=== PATIENT | male | born 1995 | race African-American/Black ===

== ENCOUNTER 2021-05-18 08:14 | Emergency (ER) | payer MEDICAID ==
[~2021-05-18] VITALS: Ht 172.7 cm; Wt 68.0 kg
[2021-05-18] MEDS ORDERED: ACETAMINOPHEN 325MG TABLET PO STA (09:48)
[2021-05-18 10:14] LABS: CLARITY URINE CLEAR (CLEAR); COLOR URINE DARK YELLOW (YELLOW); KETONES URINE 4+ (NEGATIVE); LEUKOCYTE ESTERASE URINE NEGATIVE (NEGATIVE); NITRITE URINE NEGATIVE (NEGATIVE); OCCULT BLOOD URINE NEGATIVE (NEGATIVE); PH URINE 5.5 (4.5-8.0); PROTEIN URINE TRACE (NEGATIVE); SPECIFIC GRAVITY URINE 1.033 (1.005-1.030)
[2021-05-18 10:25] LABS: BASOPHILS % 0.3 % (0.0-2.0); EOSINOPHILS % 0.3 % (0.0-5.0); HEMATOCRIT. 48.9 % (42.0-52.0); HEMOGLOBIN. 16.8 g/dL (14.0-18.0); LYMPHOCYTES % 18.2 % (20.0-50.0); MEAN CORPUSCULAR HEMOGLOBIN 33.2 pg (28.0-32.0); MEAN CORPUSCULAR VOLUME 96.5 fL (80.0-94.0); MEAN PLATELET VOLUME 7.8 fl (7.4-10.4); MONOCYTES % 10.5 % (2.0-8.0); NEUTROPHILS % 70.7 % (40.0-76.0); PLATELET 279 x1000/uL (130-400); RED BLOOD CELL COUNT 5.07 mill/uL (4.7-6.1)
[2021-05-18 10:31] LABS: CHLORIDE 104 mEq/L (98-107)
[2021-05-18 10:35] LABS: ETHANOL BLOOD < 10 mg/dL
[2021-05-18 10:39] LABS: *AMPHETAMINES SCREEN URINE PRESUMTIVE POSITIVE (NEGATIVE); *BARBITURATES SCREEN URINE NEGATIVE (NEGATIVE); *COCAINE SCREEN URINE NEGATIVE (NEGATIVE)
[2021-05-18 10:40] LABS: *BENZODIAZEPINES SCREEN URINE NEGATIVE (NEGATIVE)
[2021-05-18 10:41] LABS: CANNABINOID URINE SCREEN PRESUMTIVE POSITIVE (NEGATIVE); METHADONE URINE SCREEN NEGATIVE (NEGATIVE); OPIATES URINE SCREEN NEGATIVE (NEGATIVE); PHENCYCLIDINE URINE SCREEN NEGATIVE (NEGATIVE)
[2021-05-18] MEDS ORDERED: LORAZEPAM 1MG TABLET PO ONE (13:30)
[2021-05-18] MEDS ORDERED: OLANZAPINE 5MG TABLET ODT PO ONE (13:30)
[2021-05-18] MEDS ORDERED: LORAZEPAM 1MG TABLET PO NR (14:30)
[2021-05-18] MEDS ORDERED: OLANZAPINE 5MG TABLET ODT PO NR (14:30)
[2021-05-18] MEDS ORDERED: QUET200T MT (18:59)
[2021-05-18 19:26] VITALS: BP 115/79
== END 2021-05-18 19:32 | disposition home or self-care (01) ==
LOC: ER 08:14
DX: S02.2XXA Fracture of nasal bones, initial encounter for closed fracture (principal); S02.40CA Maxillary fracture, right side, initial encounter for closed fracture; S00.81XA Abrasion of other part of head, initial encounter; R45.851 Suicidal ideations; F20.9 Schizophrenia, unspecified; F15.10 Other stimulant abuse, uncomplicated; F12.10 Cannabis abuse, uncomplicated; Z88.0 Allergy status to penicillin; Y08.09XA Assault by strike by other specified type of sport equipment, initial encounter; Y93.89 Activity, other specified; Y92.488 Other paved roadways as the place of occurrence of the external cause
CPT/HCPCS: 36415; 70486; 80053; 80305; 80307; 80320; 80329; 81003; 85025; 99285; G0480

== ENCOUNTER 2021-06-13 03:41 | Emergency (ER) | payer MEDICAID ==
[~2021-06-13] VITALS: Ht 172.7 cm; Wt 77.0 kg
[~2021-06-13 03:41] MED LIST: QUET200T MT
[2021-06-13 03:47] VITALS: BP 158/98
== END 2021-06-13 04:47 | disposition left against medical advice (07) ==
LOC: ER 03:41
DX: Z53.21 Procedure and treatment not carried out due to patient leaving prior to being seen by health care provider (principal)

== ENCOUNTER 2021-06-13 04:57 | Emergency (ER) | payer MEDICAID ==
[~2021-06-13] VITALS: Ht 172.7 cm; Wt 84.0 kg
[2021-06-13] MEDS ORDERED: LORAZEPAM 1MG TABLET PO ONE (07:00)
[2021-06-13 07:01] LABS: BASOPHILS % 0.1 % (0.0-2.0); EOSINOPHILS % 1.6 % (0.0-5.0); HEMATOCRIT. 43.9 % (42.0-52.0); HEMOGLOBIN. 15.1 g/dL (14.0-18.0); LYMPHOCYTES % 18.4 % (20.0-50.0); MEAN CORPUSCULAR HEMOGLOBIN 32.7 pg (28.0-32.0); MEAN CORPUSCULAR VOLUME 94.9 fL (80.0-94.0); MEAN PLATELET VOLUME 7.5 fl (7.4-10.4); NEUTROPHILS % 65.9 % (40.0-76.0); PLATELET 330 x1000/uL (130-400); RED BLOOD CELL COUNT 4.62 mill/uL (4.7-6.1); RED CELL DISTRIBUTION WIDTH 13.1 % (11.6-14.6)
[2021-06-13 07:08] LABS: CHLORIDE 104 mEq/L (98-107)
[2021-06-13 07:12] LABS: ETHANOL BLOOD < 10 mg/dL
[2021-06-13 07:19] LABS: CLARITY URINE CLEAR (CLEAR); COLOR URINE YELLOW (YELLOW); KETONES URINE NEGATIVE (NEGATIVE); LEUKOCYTE ESTERASE URINE NEGATIVE (NEGATIVE); NITRITE URINE NEGATIVE (NEGATIVE); OCCULT BLOOD URINE NEGATIVE (NEGATIVE); PROTEIN URINE NEGATIVE (NEGATIVE); SPECIFIC GRAVITY URINE 1.005 (1.005-1.030); UROBILINOGEN URINE 0.2 E.U./dL (0.2-1.0)
[2021-06-13 07:47] LABS: *AMPHETAMINES SCREEN URINE PRESUMTIVE POSITIVE (NEGATIVE); *BARBITURATES SCREEN URINE NEGATIVE (NEGATIVE); *BENZODIAZEPINES SCREEN URINE NEGATIVE (NEGATIVE); *COCAINE SCREEN URINE NEGATIVE (NEGATIVE); METHADONE URINE SCREEN NEGATIVE (NEGATIVE)
[2021-06-13 07:48] LABS: CANNABINOID URINE SCREEN NEGATIVE (NEGATIVE); OPIATES URINE SCREEN NEGATIVE (NEGATIVE); PHENCYCLIDINE URINE SCREEN NEGATIVE (NEGATIVE)
[2021-06-13] MEDS ORDERED: HALOPERIDOL LACTATE 5MG/ML VIAL IM ONE (08:15)
[2021-06-13] MEDS ORDERED: LORAZEPAM 2MG/ML CPJ IM ONE (08:15)
[2021-06-13] MEDS ORDERED: ZIPRASIDONE MESYLATE 20MG/VIAL IM ONE (09:15)
[2021-06-13 09:57] VITALS: BP 110/62
== END 2021-06-13 10:04 | disposition home or self-care (01) ==
LOC: ER 04:57
DX: F24 Shared psychotic disorder (principal); F12.10 Cannabis abuse, uncomplicated; F15.10 Other stimulant abuse, uncomplicated; Z88.0 Allergy status to penicillin; Z86.59 Personal history of other mental and behavioral disorders
CPT/HCPCS: 36415; 80053; 80305; 80307; 80320; 80329; 81003; 85025; 96372; 99284; J1630; J2060; J3486; Z7610; G0480

== ENCOUNTER 2021-06-16 17:32 | Emergency (ER) | payer MEDICAID ==
[~2021-06-16] VITALS: Ht 180.3 cm; Wt 77.1 kg
[2021-06-16] MEDS ORDERED: QUETIAPINE FUMARATE 50MG TABLET PO SCH (18:15)
[2021-06-16] MEDS ORDERED: NICOTINE 21MG PATCH TD ONE (18:15)
[2021-06-16] MEDS ORDERED: LORAZEPAM 2MG/ML CPJ IV ONE (18:15)
[2021-06-16] MEDS ORDERED: SODIUM CHLORIDE 0.9% 1,000 ML IV ONE (18:15)
[2021-06-16 18:21] LABS: BASOPHILS % 0.3 % (0.0-2.0); EOSINOPHILS % 0.1 % (0.0-5.0); HEMOGLOBIN. 14.8 g/dL (14.0-18.0); LYMPHOCYTES % 15.3 % (20.0-50.0); MEAN CORPUSCULAR HEMOGLOBIN 32.5 pg (28.0-32.0); MEAN CORPUSCULAR VOLUME 94.5 fL (80.0-94.0); MEAN PLATELET VOLUME 7.3 fl (7.4-10.4); MONOCYTES % 6.1 % (2.0-8.0); NEUTROPHILS % 78.2 % (40.0-76.0); PLATELET 337 x1000/uL (130-400); RED BLOOD CELL COUNT 4.56 mill/uL (4.7-6.1)
[2021-06-16 18:28] LABS: CHLORIDE 104 mEq/L (98-107)
[2021-06-16 18:32] LABS: ETHANOL BLOOD < 10 mg/dL
[2021-06-16] MEDS ORDERED: LORAZEPAM 1MG TABLET PO NR (19:00)
[2021-06-16 20:10] LABS: CLARITY URINE CLEAR (CLEAR); COLOR URINE YELLOW (YELLOW); KETONES URINE NEGATIVE (NEGATIVE); LEUKOCYTE ESTERASE URINE NEGATIVE (NEGATIVE); NITRITE URINE NEGATIVE (NEGATIVE); OCCULT BLOOD URINE NEGATIVE (NEGATIVE); PH URINE 5.5 (4.5-8.0); PROTEIN URINE NEGATIVE (NEGATIVE); SPECIFIC GRAVITY URINE 1.012 (1.005-1.030); UROBILINOGEN URINE 0.2 E.U./dL (0.2-1.0)
[2021-06-16 20:25] LABS: METHADONE URINE SCREEN NEGATIVE (NEGATIVE); OPIATES URINE SCREEN NEGATIVE (NEGATIVE); PHENCYCLIDINE URINE SCREEN NEGATIVE (NEGATIVE)
[2021-06-16 20:27] LABS: *AMPHETAMINES SCREEN URINE PRESUMTIVE POSITIVE (NEGATIVE); *BARBITURATES SCREEN URINE NEGATIVE (NEGATIVE); *BENZODIAZEPINES SCREEN URINE NEGATIVE (NEGATIVE); *COCAINE SCREEN URINE NEGATIVE (NEGATIVE); CANNABINOID URINE SCREEN PRESUMTIVE POSITIVE (NEGATIVE)
[2021-06-16] MEDS ORDERED: DIPHENHYDRAMINE 50MG/ML VIAL IM STA (21:00)
[2021-06-16] MEDS ORDERED: LORAZEPAM 2MG/ML CPJ IM STA (21:00)
[2021-06-16] MEDS ORDERED: HALOPERIDOL LACTATE 5MG/ML VIAL IM STA (21:00)
[2021-06-16] MEDS ORDERED: LORAZEPAM 2MG/ML CPJ IM ONE (22:00)
[2021-06-16] MEDS ORDERED: HALOPERIDOL LACTATE 5MG/ML VIAL IM ONE (23:00)
[2021-06-17] MEDS ORDERED: ACETAMINOPHEN 325MG TABLET PO ONE (03:15)
[2021-06-17] MEDS ORDERED: QUET200T MT (07:08)
[2021-06-17 07:42] VITALS: BP 126/70
== END 2021-06-17 07:45 | disposition home or self-care (01) ==
LOC: ER 17:32
DX: T88.7XXA Unspecified adverse effect of drug or medicament, initial encounter (principal); R45.851 Suicidal ideations; T43.625A Adverse effect of amphetamines, initial encounter; Y92.9 Unspecified place or not applicable; Z78.1 Physical restraint status
CPT/HCPCS: 36415; 80053; 80305; 80320; 81003; 85025; 93005; 96372; 99285; J1200; J1630; J2060; J7030; Z7610; G0480

== ENCOUNTER 2021-08-09 00:19 | Emergency (ER) | payer MEDICAID ==
[~2021-08-09] VITALS: Ht 177.8 cm; Wt 73.0 kg
[2021-08-09 02:00] VITALS: BP 113/71
[2021-08-09] MEDS ORDERED: LORAZEPAM 1MG TABLET PO ONE (02:45)
[2021-08-09] MEDS ORDERED: QUET200T MT (03:09)
[2021-08-09] MEDS ORDERED: DOXY100C5 MT (03:09)
[2021-08-09] MEDS ORDERED: ACETAMINOPHEN 325MG TABLET PO ONE (03:15)
== END 2021-08-09 04:51 | disposition home or self-care (01) ==
LOC: ER 00:35
DX: S31.21XA Laceration without foreign body of penis, initial encounter (principal); R51.9 Headache, unspecified; F20.9 Schizophrenia, unspecified; F41.9 Anxiety disorder, unspecified; Y08.89XA Assault by other specified means, initial encounter; Y93.9 Activity, unspecified; Z88.0 Allergy status to penicillin
CPT/HCPCS: 99283

== ENCOUNTER 2021-08-09 16:29 | Emergency (ER) | payer MEDICAID ==
[~2021-08-09] VITALS: Ht 172.7 cm; Wt 75.0 kg
[~2021-08-09 16:29] MED LIST changes: +DOXY100C5 MT
[2021-08-09 21:26] LABS: BASOPHILS % 0.6 % (0.0-2.0); EOSINOPHILS % 1.9 % (0.0-5.0); HEMATOCRIT. 43.3 % (42.0-52.0); HEMOGLOBIN. 14.4 g/dL (14.0-18.0); LYMPHOCYTES % 42.6 % (20.0-50.0); MEAN CORPUSCULAR VOLUME 95.9 fL (80.0-94.0); MEAN PLATELET VOLUME 6.9 fl (7.4-10.4); MONOCYTES % 8.7 % (2.0-8.0); NEUTROPHILS % 46.2 % (40.0-76.0); PLATELET 233 x1000/uL (130-400); RED BLOOD CELL COUNT 4.51 mill/uL (4.7-6.1); RED CELL DISTRIBUTION WIDTH 14.2 % (11.6-14.6)
[2021-08-09 21:31] LABS: CHLORIDE 109 mEq/L (98-107)
[2021-08-09 21:34] LABS: ETHANOL BLOOD < 10 mg/dL
[2021-08-10 06:00] VITALS: BP 116/50
== END 2021-08-10 06:16 | disposition home or self-care (01) ==
LOC: ER 16:29
DX: R41.82 Altered mental status, unspecified (principal); F15.10 Other stimulant abuse, uncomplicated; F41.9 Anxiety disorder, unspecified; F20.9 Schizophrenia, unspecified; Z88.0 Allergy status to penicillin
CPT/HCPCS: 36415; 80053; 80320; 85025; 99285; G0480

== ENCOUNTER 2021-08-22 11:30 | Emergency (ER) | payer MEDICAID ==
[~2021-08-22] VITALS: Ht 182.9 cm; Wt 80.0 kg
[2021-08-22] MEDS ORDERED: DIPHENHYDRAMINE 50MG CAPSULE PO STA (12:16)
[2021-08-22] MEDS ORDERED: ACETAMINOPHEN 325MG TABLET PO STA (12:16)
[2021-08-22] MEDS ORDERED: LORAZEPAM 1MG TABLET PO ONE (12:30)
[2021-08-22] MEDS ORDERED: OLANZAPINE 5MG TABLET ODT PO ONE (12:30)
[2021-08-22 17:07] VITALS: BP 148/88
== END 2021-08-22 17:09 | disposition home or self-care (01) ==
LOC: ER 11:30
DX: F14.90 Cocaine use, unspecified, uncomplicated (principal); I49.9 Cardiac arrhythmia, unspecified; Z88.0 Allergy status to penicillin; Z86.59 Personal history of other mental and behavioral disorders
CPT/HCPCS: 71045; 93005; 99284; Q0163